=== PATIENT | female | born 1960 | race African-American/Black ===

== ENCOUNTER → 2020-12-12 | Outpatient (CLI) | payer OTHER ==
[~2020-12-12] VITALS: Ht 172.7 cm; Wt 49.0 kg
[~2020-12-12] MED LIST: ACIDOPHILUS1 EACH PO; CALCIUM 500 MG PO; CVS NIGHTTIME118 ML PO; DOXYCYCLINE HY100 M4 PO; DULCOLAX STOOL100 M1 PO; HYDROCODON-ACE1 EAC7 PO; JANUMET XR 1001 EACH PO; KLOR-CON M2020 MEQ PO; LOPERAMIDE 2 MG2 M1 PO; SUPER THERAVIT1 EACH PO; VITAMIN C500 M2 PO
[2020-12-12 08:58] VITALS: BP 141/87
--- NOTE | 2020-12-12 15:10 | NUR ---
PT WAS TAKEN BACK TO PROCEDURE ROOM AND UNABLE TO DO PROCEDURE DUE TO PT CONTRACTURES. TAKEN BACK TO CV HOLDING AND WAITED SEVERAL HOURS FOR DR RAHMAN TO SEE PT ACCORDING TO DR LOYD. DR RAHMAN DIDN'T COME AND SAID AT 1500 HE DIDN'T KNOW HE WAS SUPPOSED TO SEE PT. SO TRANSPORTATION CALLED TO TAKE PT BACK TO FACILITY. PT RECEIVED 900CCS NS HUNG AT 0825 AND REMOVED AT 1500. PT'S BLOOD SUGAR WAS 64 AT 1200 SO 1MG GLUCAGON IV GIVEN ACCUCHECK AT 1215 73. ACCUCHECK AT 1300 86. ACCUCHECK AT 1450 69. 1500 GIVING PT OJ NOW PER [facility] HERE. REPORT TO MARY AT [facility]. NOTIFIED OF HR 120 AND LOW BLOOD SUGARS 1510
== END | disposition home or self-care (01) ==
LOC: CATH 12-09 07:01
PROVIDERS: ATTEND Nuclear Medicine Nuclear Cardiology
DX: Z43.1 Encounter for attention to gastrostomy (principal); Z53.8 Procedure and treatment not carried out for other reasons; I10 Essential (primary) hypertension; E11.9 Type 2 diabetes mellitus without complications; E78.00 Pure hypercholesterolemia, unspecified; Z98.890 Other specified postprocedural states; Z79.899 Other long term (current) drug therapy; Z86.73 Personal history of transient ischemic attack (TIA), and cerebral infarction without residual deficits; Z79.4 Long term (current) use of insulin